=== PATIENT | female | born 1985 | race American Indian/Alaskan Native ===

== ENCOUNTER 2018-06-05 12:42 | Emergency (ER) | payer OTHER ==
[2018-06-05 12:43] VITALS: BMI 37.3
[2018-06-05 12:49] VITALS: RESP 18
[2018-06-05] MEDS ORDERED: Sodium Chloride 0.9% 1,000 ML IV STA (12:58)
[2018-06-05 13:31] LABS: EOS % 0.3 % (1.5-5.0); HEMOGLOBIN 13.1 g/dL (12.0-16.0); LYMPH # 0.9 (1.2-3.4); LYMPH % 25.6 % (22.0-35.0); MEAN CELL VOLUME 88.6 fl (80.0-105.0); MEAN CORPUSCULAR HEMOGLOBIN 29.2 pg (25.0-35.0); MEAN CORPUSCULAR HGB CONC 32.9 g/dl (31.0-37.0); PLATELET COUNT 201 10^3/uL (120.0-450.0); RBC 4.49 10^6/uL (3.5-6.1); RED CELL DISTRIBUTION WIDTH 13.6 % (11.5-14.5); WHITE BLOOD COUNT 3.6 10^3/uL (4.5-11.0)
--- NOTE | 2018-06-05 13:37 | ED PDOC ---
Arrival/HPI - General Chief Complaint: Dizziness/Lightheaded Time Seen by Provider: 06/05/18 12:43 - History of Present Illness Narrative History of Present Illness (Text): 33 y/o female with PMH of PCOS, MVP, presents to the ED c/o lightheadedness and headache x 2 days. Headache is a throbbing pain located behind bilateral eyes. Lightheadedness is worse with sudden movement and when standing up too quickly. Admits that she does not drink enough water throughout the day. Associated sinus congestion/pressure and dysuria. One episode of SOB yesterday. No sick contacts or recent travel. Denies fever, chills, chest pain, SOB, abdominal pain, nausea, vomiting, cough, hematuria, diarrhea, vision changes, vertigo, tinnitus, photophobia, eye redness, pain on eye movement, back pain, or any other associated complaints. Past Medical History - Infectious Disease Hx of Infectious Diseases: None - Cardiac Hx Hypertension: Yes (during ) Hx Mitral Valve Prolapse: Yes - Pulmonary Hx Asthma: Yes - Endocrine/Metabolic Hx Diabetes Mellitus Type 2: Yes (GDM) - Genitourinary/Gynecological Other/Comment: PCOS. Fibroids - Psychiatric Hx Substance Use: No - Surgical History Other/Comment: Ovarian cyst removal. L wrist sx - Anesthesia Hx Anesthesia: Yes Hx Anesthesia Reactions: No Hx Malignant Hyperthermia: No Family/Social History - Physician Review Nursing Documentation Reviewed: Yes Family/Social History: No Known Family HX Smoking Status: Never Smoked Hx Alcohol Use: Yes Frequency of alcohol use: Socially Hx Substance Use: No Allergies/Home Meds Allergies/Adverse Reactions: Allergies Penicillins Allergy (Verified 06/05/18 12:43) RASH Review of Systems - Review of Systems Constitutional: Normal Eyes: Eye Pain (bilateral). absent: Vision Changes, Photophobia ENT: Sinus Congestion. absent: Sore Throat Respiratory: Normal. absent: SOB, Cough Cardiovascular: Normal. absent: Chest Pain, Palpitations, Syncope Gastrointestinal: Normal. absent: Abdominal Pain, Stool Changes, Nausea, Vomiting, Appetite Changes Genitourinary Female: Dysuria. absent: Frequency, Vaginal Bleeding, Vaginal Discharge Musculoskeletal: Normal. absent: Back Pain, Neck Pain Skin: Normal. absent: Rash, Cellulitis Neurological: Headache. absent: Dizziness, Focal Weakness, Gait Changes, Disequilibrium, Other (no ataxia) Endocrine: Normal. absent: Diaphoresis Hemo/Lymphatic: Normal Psychiatric: Normal Physical Exam Vital Signs Reviewed: Yes Vital Signs Temp Pulse Resp BP Pulse Ox 06/05/18 12:47 98.8 F 109 H 18 151/85 H 98 Temperature: Afebrile Blood Pressure: Hypertensive Pulse: Tachycardic Respiratory Rate: Normal Appearance: Positive for: Well-Appearing, Non-Toxic, Comfortable Pain Distress: None Mental Status: Positive for: Alert and Oriented X 3 - Systems Exam Head: Present: Atraumatic, Normocephalic Pupils: Present: PERRL Extroacular Muscles: Present: EOMI, Other (no proptosis; no perioribital erythema or edema; no pain on eye movement) Conjunctiva: Present: Normal Ears: Present: Normal, NORMAL TM (with fluid bubbles behind TM bilaterally), Normal Canal Mouth: Present: Moist Mucous Membranes Pharnyx: Present: Normal. No: ERYTHEMA, EXUDATE Neck: Present: Normal Range of Motion. No: Meningeal Signs, MIDLINE TENDERNESS, Paraspinal Tenderness Respiratory/Chest: Present: Clear to Auscultation, Good Air Exchange. No: Re spiratory Distress, Accessory Muscle Use Cardiovascular: Present: Normal S1, S2, Peripheal Pulses Present, Tachycardic Abdomen: Present: Normal Bowel Sounds. No: Tenderness, Distention, Peritoneal Signs, Rebound, Guarding Back: Present: Normal Inspection. No: CVA Tenderness, Paraspinal Tenderness Upper Extremity: Present: Normal Inspection, Normal ROM, NORMAL PULSES, Neurovascularly Intact, Capillary Refill < 2s. No: Cyanosis, Edema, Temperature Abnormalties Lower Extremity: Present: Normal Inspection, NORMAL PULSES, Normal ROM, Neurovascularly Intact, Capillary Refill < 2 s. No: Edema, Temperature Abnormalties Neurological: Present: GCS=15, CN II-XII Intact, Speech Normal, Motor Func Grossly Intact, Normal Sensory Function, Gait Normal Skin: Present: Warm, Dry, Normal Color. No: Rashes Psychiatric: Present: Alert, Oriented x 3, Normal Insight, Normal Concentration, Normal Affect, Normal Mood Medical Decision Making ED Course and Treatment: Initial Plan: * CBC, CMP * Coags * Dimer, Troponin * TSH, Free T4 * UA * CXR * CT Head * EKG Bloodwork reviewed, elevated dimer, CTA ordered; otherwise unremarkable Will treat symptomatic UTI with macrobid. CTA negative for acute pathology Head CT negative Eye pressures normal, R 19 L 17 Visual [place] and acuity normal Advised PMD and, Optho, and ENT followup. Diagnostic testing results and plan of care discussed with patient. Strict instructions given regarding prescription use, importance of followup, and signs/symptoms to return to ER including syncope, nausea, vomiting, numbness, weakness, vision changes, or any other new/worsening symptoms. Pt verbalized understanding of discussion. Patient is A&Ox3, ambulating with steady gait, with vital signs stable for discharge. - Lab Interpretations Lab Results: 06/05/18 13:15 06/05/18 13:15 Lab Results 06/05/18 14:20: Urine Color Yellow, Urine Appearance Clear, Urine pH 6.0, Ur Specific [place] 1.025, Urine Protein 30 H, Urine Glucose (UA) Negative, Urine Ketones Negative, Urine Blood Small H, Urine Nitrate Negative, Urine Bilirubin Negative, Urine Urobilinogen 0.2, Ur Leukocyte Esterase Small H, Urine RBC 10 - 15 H, Urine WBC 15 - 20 H, Ur Epithelial Cells 10 - 12 H, Amorphous Sediment Few, Urine Bacteria Many, Coarse Granular Casts Trace, Urine Other Uyeast 06/05/18 14:00: PT 15.2 H, INR 1.37, APTT 32.0, D-Dimer, Quantitative 283 H 06/05/18 13:15: Free T4 0.73 L, TSH 3rd Generation 0.96 06/05/18 13:15: Sodium 138, Potassium 4.0, Chloride 100, Carbon Dioxide 27, Anion Gap 15, BUN 7, Creatinine 0.8, Est GFR ( Amer) > 60, Est GFR (Non- Af Amer) > 60, Random Glucose 105, Calcium 9.1, Phosphorus 3.1, Magnesium 1.9, Total Bilirubin 0.3, AST 30, ALT 14, Alkaline Phosphatase 84, Troponin I < 0.01, Total Protein 8.6 H, Albumin 4.4, Globulin 4.2, Albumin/Globulin Ratio 1.0 L 06/05/18 13:15: PT Cancelled, INR Cancelled, APTT Cancelled, D-Dimer, Quantitative Cancelled 06/05/18 13:15: WBC 3.6 L, RBC 4.49, Hgb 13.1, Hct 39.8, MCV 88.6, MCH 29.2, MCHC 32.9, RDW 13.6, Plt Count 201, MPV 10.0, Neut % (Auto) 47.1 L, Lymph % (Auto) 25.6, [place] % (Auto) 27.0 H, Eos % (Auto) 0.3 L, Baso % (Auto) 0.0, Lymph # (Auto) 0.9 L, [place] # (Auto) 1.0 H, Eos # (Auto) 0.0, Baso # (Auto) 0.00, Absolute Neuts (auto) 1.67, Neutrophils % (Manual) 53, Band Neutrophils % 1, Lymphocytes % (Manual) 33, Monocytes % (Manual) 13 H, Platelet Evaluation Normal I have reviewed the lab results: Yes - RAD Interpretation Narrative RAD Interpretations (Text): 06/05/18 16:07 CTA PE Protocol: FINDINGS: PULMONARY ARTERIES: Unremarkable. No pulmonary embolism. AORTA: No acute findings. No thoracic aortic aneurysm. No aortic atherosclerotic calcification or mural plaque present. LUNGS: Unremarkable. No nodule, mass or pulmonary consolidation. PLEURAL SPACES: Unremarkable. No effusion or pneumothorax. HEART: Unremarkable. No cardiomegaly. No significant pericardial effusion. LYMPH NODES: No lymphadenopathy. BONES, CHEST WALL: Unremarkable. No fracture or destructive lesion OTHER FINDINGS: Unremarkable. IMPRESSION: Unremarkable CT pulmonary angiogram. No pulmonary embolus. CT Head: FINDINGS: HEMORRHAGE: No intracranial hemorrhage. BRAIN: No mass effect or edema. No atrophy or chronic microvascular ischemic changes. VENTRICLES: Unremarkable. No hydrocephalus. CALVARIUM: Unremarkable. PARANASAL SINUSES: Unremarkable as visualized. No significant inflammatory changes. MASTOID AIR CELLS: Unremarkable as visualized. No inflammatory changes. OTHER FINDINGS: None. IMPRESSION: No acute intracranial findings Radiology Orders: 06/05/18 12:56 HEAD W/O CONTRAST [CT] Stat 06/05/18 13:05 CXR (PA/LAT) [CHEST TWO VIEWS (PA/LAT)] [RAD] Stat Manager Of Digital: Radiologist - EKG Interpretation EKG Interpretation (Text): 06/05/18 16:08 Rate 93; NSR; Normal Intervals; No STEMI, nonspecific ST/T wave changes Interpreted by ED Physician: Yes Type: 12 lead EKG Comparison: Com.w/previous EKG - Medication Orders Current Medication Orders: Sodium Chloride (Sodium Chloride 0.9%) 1,000 mls @ 999 mls/hr IV .Q1H1M STA Stop: 06/05/18 13:58 Last Admin: 06/05/18 13:19 Dose: 999 mls/hr eMAR Start Stop Document 06/05/18 13:19 MA (Rec: 06/05/18 13:19 [place] [id number]) Intravenous Solution Start Date 06/05/18 Start Time 13:19 Discontinued Medications Acetaminophen (Tylenol 325mg Tab) 650 mg PO STAT STA Stop: 06/05/18 12:59 Last Admin: 06/05/18 13:18 Dose: 650 mg MAR Pain/Vitals Document 06/05/18 13:18 MA (Rec: 06/05/18 13:19 [place] [facility] [id number]) Pain Reassessment Is This A Pain ReAssessment? Yes Sleep Is patient sleeping during reassessment? No Presence of Pain Presence of Pain Yes Pain Scale Used Protocol: PSCALES Pain Scale Used Numeric Location Pain Location Body Materials Director Intensity 4 Scale Used Numeric Pain Behavior Rubbing Site Restlessness Disposition/Present on Arrival - Present on Arrival Any Indicators Present on Arrival: No History of DVT/PE: No History of Uncontrolled Diabetes: No Urinary Catheter: No History of Decub. Ulcer: No History Surgical Site Infection Following: None - Disposition Have Diagnosis and Disposition been Completed?: Yes Diagnosis: Headache, UTI (urinary tract infection) Disposition: HOME/ ROUTINE Disposition Time: 17:00 Patient Plan: Discharge Condition: IMPROVED Discharge Instructions (ExitCare): Headache, Adult, Sinus Headache (DC), Urinary Tract Infections in Adults Additional Instructions: Flonase 2 sprays in the nostrils every day Macrobid every 12 hours for 7 days Followup with ENT within 2 days Followup with ophthalmology within 2 days Followup with primary doctor within 2 days Prescriptions: Fluticasone Propionate [Flonase] 2 spr NS DAILY #1 bottle Nitrofurantoin Macrocrystals [Macrobid] 100 mg PO Q12 #14 cap Referrals: [facility] [Outside] - Follow up with primary Mitch Arnold DO [Staff Provider] - Follow up with primary Kacey Kelley MD [Medical Doctor] - Follow up with primary Forms: [facility] (Botswanan), WORK NOTE
[2018-06-05 13:46] LABS: ALBUMIN 4.4 g/dL (3.0-4.8); ALT/SGPT 14 U/L (7-56); AST/SGOT 30 U/L (14-36); BLOOD UREA NITROGEN 7 mg/dL (7-21); CALCIUM 9.1 mg/dL (8.4-10.5); GFR NON-AFRICAN AMERICAN > 60
[2018-06-05 13:58] LABS: TROPONIN I < 0.01 ng/mL
[2018-06-05 14:02] LABS: BAND 1 % (0-2); LYMPHOCYTE 33 % (22.0-35.0); MONOCYTE 13 % (1.0-6.0); NEUTROPHIL 53 % (50.0-70.0); PLATELET ESTIMATE NORMAL (NORMAL)
[2018-06-05 14:14] LABS: FREE T4 0.73 ng/dL (0.78-2.19)
[2018-06-05 14:28] LABS: INR 1.37; PROTHROMBIN TIME 15.2 SECONDS (9.4-12.5)
[2018-06-05 14:29] LABS: URINE BILIRUBIN NEGATIVE (NEGATIVE); URINE BLOOD SMALL (NEGATIVE); URINE GLUCOSE (UA) NEGATIVE (NEGATIVE); URINE LEUKOCYTE ESTERASE SMALL Leu/uL (NEGATIVE); URINE PROTEIN 30 mg/dL (<30 mg/dL); URINE UROBILINOGEN 0.2 E.U./dL (<1 E.U./dL)
[2018-06-05 14:45] LABS: URINE APPEARANCE CLEAR (CLEAR); URINE COLOR YELLOW (YELLOW)
[2018-06-05 14:46] LABS: URINE BACTERIA MANY /hpf; URINE WBC 15 - 20 /hpf (0-6)
[2018-06-05 14:47] LABS: URINE AMORPHOUS SEDIMENT FEW /hpf; URINE COARSE GRANULAR CAST TRACE /hpf
[2018-06-05] MEDS ORDERED: Iohexol 350 MG/100 ML VIAL ONE (15:39)
--- NOTE | 2018-06-05 16:01 | CT ---
Date of service: 06/05/2018 PROCEDURE: CT HEAD WITHOUT CONTRAST. HISTORY: headache COMPARISON: None available. TECHNIQUE: Axial computed tomography images were obtained through the head/brain without intravenous contrast. Radiation dose: Total exam DLP = 940.77 mGy-cm. This CT exam was performed using one or more of the following dose reduction techniques: Automated exposure control, adjustment of the mA and/or kV according to patient size, and/or use of iterative reconstruction technique. FINDINGS: HEMORRHAGE: No intracranial hemorrhage. BRAIN: No mass effect or edema. No atrophy or chronic microvascular ischemic changes. VENTRICLES: Unremarkable. No hydrocephalus. CALVARIUM: Unremarkable. PARANASAL SINUSES: Unremarkable as visualized. No significant inflammatory changes. MASTOID AIR CELLS: Unremarkable as visualized. No inflammatory changes. OTHER FINDINGS: None. IMPRESSION: No acute intracranial findings
--- NOTE | 2018-06-05 16:05 | CT ---
Date of service: 06/05/2018 PROCEDURE: CT Chest with contrast (Pulmonary Angiogram) HISTORY: SOB, elevated dimer COMPARISON: None available. TECHNIQUE: Axial computed tomography images were obtained of the chest in the pulmonary arterial phase of enhancement. Coronal and sagittal reformatted images were created and reviewed. Intravenous contrast dose: 96 cc of Omni 350 Radiation dose: Total exam DLP = 463.46 mGy-cm. This CT exam was performed using one or more of the following dose reduction techniques: Automated exposure control, adjustment of the mA and/or kV according to patient size, and/or use of iterative reconstruction technique. FINDINGS: PULMONARY ARTERIES: Unremarkable. No pulmonary embolism. AORTA: No acute findings. No thoracic aortic aneurysm. No aortic atherosclerotic calcification or mural plaque present. LUNGS: Unremarkable. No nodule, mass or pulmonary consolidation. PLEURAL SPACES: Unremarkable. No effusion or pneumothorax. HEART: Unremarkable. No cardiomegaly. No significant pericardial effusion. LYMPH NODES: No lymphadenopathy. BONES, CHEST WALL: Unremarkable. No fracture or destructive lesion OTHER FINDINGS: Unremarkable. IMPRESSION: Unremarkable CT pulmonary angiogram. No pulmonary embolus.
--- NOTE | 2018-06-05 17:26 | RAD ---
HISTORY: dizziness COMPARISON: CTA chest performed same day. TECHNIQUE: Chest PA and lateral FINDINGS: LUNGS: No focal consolidation. Please note that chest x-ray has limited sensitivity for the detection of pulmonary masses. PLEURA: No significant pleural effusion identified. No definite pneumothorax . CARDIOVASCULAR: The cardiomediastinal silhouette appears within normal limits of size. No atherosclerotic calcification present. OSSEOUS STRUCTURES: No acute osseous abnormality identified. VISUALIZED UPPER ABDOMEN: Unremarkable. OTHER FINDINGS: None. IMPRESSION: No focal consolidation.
[2018-06-05 18:17] VITALS: BP 132/88; PULSE 87; TEMP 97.8; O2SAT 99
--- NOTE | 2018-06-05 18:44 | CARD ---
APPROVED REPORT Date of service: 06/05/2018 EKG Measurement Heart [id number] <Conclusion> Normal sinus rhythm Possible Anterior infarct, age undetermined Abnormal ECG
== END 2018-06-05 17:36 | disposition home or self-care (01) ==
LOC: ED 12:42
DX: N39.0 Urinary tract infection, site not specified (principal); R51 Headache
CPT/HCPCS: 70450; 71046; 71275; 80053; 81001; 81025; 83735; 84100; 84439; 84443; 84484; 85025; 85378; 85610; 85730; 87086; 93005; 99284; J7030; Q9967